=== PATIENT | female | born 2000 | race Caucasian/White ===

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

== ENCOUNTER 2018-04-05 17:22 | Inpatient (IN) | payer BC ==
[2018-04-05 17:39] LABS: BASO % 0.5 % (0.0-1.0); EOS # 0.1 10^3/uL (0.0-0.50); EOS % 0.6 % (0.0-3.0); HEMATOCRIT 39.5 % (36.0-47.0); IMMATURE GRANULOCYTE % 0.4 % (0-3.0); LYMPH # 1.2 10^3/uL (1.5-6.5); LYMPH % 15.5 % (24.0-44.0); MEAN CORPUSCULAR HEMOGLOBIN 30.4 pg (27.0-33.0); MEAN CORPUSCULAR HGB CONC 32.9 g/dl (32.0-36.5); MEAN CORPUSCULAR VOLUME 92.3 fl (80.0-96.0); MONO # 0.7 10^3/uL (0.0-0.8); MONO % 8.2 % (0.0-5.0); NEUTROPHILS # 5.9 10^3/uL (1.8-7.7); NEUTROPHILS % 74.8 % (36.0-66.0); PLATELET COUNT, AUTOMATED 318 10^3/uL (150-450); RED BLOOD COUNT 4.28 10^6/uL (4.00-5.40); RED CELL DISTRIBUTION WIDTH 13.3 % (11.5-14.5); WHITE BLOOD COUNT 7.9 10^3/uL (4.0-10.0)
[2018-04-05] MEDS: NS 1,000 ML IV ×3 (17:43→21:45)
[2018-04-05 17:55] LABS: CONTROL LINE HCG INT CTR LINE PRESENT; HCG, SERUM QUALITATIVE NEGATIVE (NEGATIVE)
[2018-04-05 18:09] LABS: ALBUMIN 3.8 GM/DL (3.2-5.2); ALBUMIN/GLOBULIN RATIO 1.06 (1.00-1.93); ALKALINE PHOSPHATASE 70 U/L (45-117); ALT/SGPT 19 U/L (12-78); ANION GAP 9 MEQ/L (8-16); AST/SGOT 9 U/L (7-37); BILIRUBIN,DIRECT 0.1 MG/DL (0.0-0.2); BILIRUBIN,TOTAL 0.5 MG/DL (0.2-1.0); BLOOD UREA NITROGEN 11 MG/DL (7-18); CALCIUM LEVEL 8.8 MG/DL (8.5-10.1); CARBON DIOXIDE LEVEL 24 MEQ/L (21-32); CHLORIDE LEVEL 109 MEQ/L (98-107); CPK CREATINE PHOSPHOKINASE 74 U/L (26-192); CREATININE FOR GFR 0.96 MG/DL (0.55-1.30); GLUCOSE, FASTING 128 MG/DL (70-100); POTASSIUM SERUM 4.3 MEQ/L (3.5-5.1); SALICYLATE LEVEL < 1.7 MG/DL (5.0-30.0); SODIUM LEVEL 142 MEQ/L (136-145); TOTAL PROTEIN 7.4 GM/DL (6.4-8.2)
[2018-04-05 18:16] LABS: ACETAMINOPHEN LEVEL < 2.0 UG/ML (10.0-30.0); ETHYL ALCOHOL (ETHANOL) < 0.003 % (0.000-0.010)
[2018-04-05 18:41] LABS: AMPHETAMINES LEVEL URINE NEGATIVE (NEGATIVE); BARBITURATES URINE NEGATIVE (NEGATIVE); BENZODIAZEPINES URINE NEGATIVE (NEGATIVE); CANNABINOIDS URINE NEGATIVE (NEGATIVE); COCAINE METABOLITE URINE NEGATIVE (NEGATIVE); METHADONE URINE NEGATIVE (NEGATIVE); OPIATES URINE NEGATIVE (NEGATIVE); PHENCYCLIDINE URINE NEGATIVE (NEGATIVE)
[2018-04-06] MEDS ORDERED: ACETAMINOPHEN TAB 650MG DOSE (2X325MG) PO (02:00)
[2018-04-06] MEDS ORDERED: MOM 30ML SUSPENSION UDC PO (02:00)
[2018-04-06] MEDS ORDERED: traZODone 50 MG TAB PO (02:00)
[2018-04-06] MEDS ORDERED: MAALOX 30 ML SUSP *UDC PO (02:00)
== END 2018-04-07 11:45 | disposition home or self-care (01) | DRG 754 ==
LOC: M ED 17:22 → M ED INP 04-06 01:47 → M PSY 04-06 02:45
DX: F43.21 Adjustment disorder with depressed mood (principal); T36.3X2A Poisoning by macrolides, intentional self-harm, initial encounter; T43.3X5A Adverse effect of phenothiazine antipsychotics and neuroleptics, initial encounter; Y92.411 Interstate highway as the place of occurrence of the external cause

== ENCOUNTER 2018-05-08 13:04 | Emergency (ER) | payer BC ==
[2018-05-08] MEDS: ONDANSETRON 4MG/2ML VIAL (J2405) IV (15:08)
[2018-05-08] MEDS: NS 1,000 ML IV (15:08)
[2018-05-08 15:19] LABS: HEMATOCRIT 40.4 % (36.0-47.0); HEMOGLOBIN 13.6 g/dl (12.0-15.5); MEAN CORPUSCULAR HEMOGLOBIN 29.5 pg (27.0-33.0); MEAN CORPUSCULAR HGB CONC 33.7 g/dl (32.0-36.5); MEAN CORPUSCULAR VOLUME 87.6 fl (80.0-96.0); PLATELET COUNT, AUTOMATED 203 10^3/uL (150-450); RED BLOOD COUNT 4.61 10^6/uL (4.00-5.40); WHITE BLOOD COUNT 9.8 10^3/uL (4.0-10.0)
[2018-05-08 15:25] LABS: KETONE, URINE AUTO RFX NEGATIVE (NEGATIVE); MUCUS, URINE RFX SMALL (NEGATIVE); NITRITE, URINE AUTO RFX NEGATIVE (NEGATIVE); RBC, URINE AUTO RFX 2 /HPF (0-3); SPECIFIC GRAVITY UR AUTO RFX 1.011 (1.002-1.035); SQUAM EPITHELIAL CELL UR AURFX 4 /HPF (0-6); WBC, URINE AUTO RFX 3 /HPF (0-3)
[2018-05-08 15:28] LABS: ADD MANUAL DIFFER YES; DIFF SLIDE NUMBER 276; POSITIVE DIFF POS FLAG; POSITIVE MORPH POS FLAG
[2018-05-08 15:35] LABS: CONTROL LINE MONO INT CTR LINE PRESENT; MONO SCRN POSITIVE (NEGATIVE)
[2018-05-08 15:42] LABS: ALBUMIN 4.1 GM/DL (3.2-5.2); ALBUMIN/GLOBULIN RATIO 1.03 (1.00-1.93); ALKALINE PHOSPHATASE 171 U/L (45-117); ALT/SGPT 107 U/L (12-78); ANION GAP 9 MEQ/L (8-16); AST/SGOT 100 U/L (7-37); BILIRUBIN,DIRECT 0.3 MG/DL (0.0-0.2); BILIRUBIN,TOTAL 0.8 MG/DL (0.2-1.0); BLOOD UREA NITROGEN 4 MG/DL (7-18); CALCIUM LEVEL 9.3 MG/DL (8.5-10.1); CARBON DIOXIDE LEVEL 26 MEQ/L (21-32); CHLORIDE LEVEL 106 MEQ/L (98-107); CREATININE FOR GFR 0.88 MG/DL (0.55-1.30); GLUCOSE, FASTING 87 MG/DL (70-100); LIPASE 56 U/L (73-393); POTASSIUM SERUM 3.6 MEQ/L (3.5-5.1); SODIUM LEVEL 141 MEQ/L (136-145); TOTAL PROTEIN 8.1 GM/DL (6.4-8.2)
[2018-05-08] MEDS ORDERED: ISOVUE-370 76% 100ML VIAL (Q9967) As Ordered (15:44)
[2018-05-08 15:48] LABS: LYMPHOCYTES 75 % (16-52); MONOCYTES 6 % (0-8); NEUTROPHILS 19 % (35-75)
[2018-05-08] MEDS: KETOROLAC 30 MG/ML VIAL (J1885) IV (15:48)
[2018-05-08 15:49] LABS: PLATELET ESTIMATE NORMAL (NORMAL)
[2018-05-08 16:03] LABS: LEUKOCYTE ESTERASE UR AUTO RFX TRACE (NEGATIVE)
== END 2018-05-08 17:09 | disposition home or self-care (01) ==
LOC: M ED 13:04
DX: B27.99 Infectious mononucleosis, unspecified with other complication (principal); R16.2 Hepatomegaly with splenomegaly, not elsewhere classified
CPT/HCPCS: J2405

== ENCOUNTER 2018-06-11 19:56 | Emergency (ER) | payer BC | END 2018-06-11 20:57 | disposition home or self-care (01) | LOC: M ED 19:56 | DX: Z60.9 Problem related to social environment, unspecified (principal); F41.9 Anxiety disorder, unspecified; F17.201 Nicotine dependence, unspecified, in remission | CPT/HCPCS: 99284 ==

== ENCOUNTER → 2018-10-06 | Outpatient (CLI) | payer BC ==
[~2018-10-06] MED LIST changes: +KEFL500C17 PO
[2018-10-06 16:07] LABS: CHLAMYDIA DNA AMPLIFICATION NEGATIVE (NEGATIVE); GC DNA AMPLIFICATION NEGATIVE (NEGATIVE)
[2018-10-07 16:24] LABS: HEPATITIS B SURFACE ANTIBODY NEGATIVE (POSITIVE); HEPATITIS B SURFACE ANTIGEN NEGATIVE (NEGATIVE); HIV 1&2 SCREEN CENTAUR NEGATIVE (NEGATIVE)
[2018-10-08 14:44] LABS: HEPATITIS B CORE ANTIBODY IGG Negative (Negative); HEPATITIS C QUANTITATION HCV Not Detected IU/mL (.); HSV IgM TYPES 1&2 <0.91 Ratio (0.00-0.90)
== END ==
LOC: M WUC 12:14
PROVIDERS: ATTEND Student in an Organized Health Care Education/Training Program
DX: Z20.2 Contact with and (suspected) exposure to infections with a predominantly sexual mode of transmission (principal)

== ENCOUNTER → 2018-10-13 | Outpatient (CLI) | payer BC | LOC: M WUC 12:17 | PROVIDERS: ATTEND Student in an Organized Health Care Education/Training Program | DX: Z78.9 Other specified health status (principal) ==

== ENCOUNTER → 2019-05-24 | Outpatient (REF) | payer BC | LOC: M LAB REF 11:24 | PROVIDERS: ATTEND Physician Assistant | DX: J20.9 Acute bronchitis, unspecified (principal) ==

== ENCOUNTER → 2019-09-25 | Outpatient (REF) | payer BC | LOC: M LAB REF 17:48 | PROVIDERS: ATTEND Physician Assistant | DX: J02.9 Acute pharyngitis, unspecified (principal) ==

== ENCOUNTER → 2019-10-18 | Outpatient (REF) | payer BC ==
[2019-10-19 12:22] LABS: CHLAMYDIA DNA AMPLIFICATION NEGATIVE (NEGATIVE); GC DNA AMPLIFICATION NEGATIVE (NEGATIVE)
== END ==
LOC: M SFHCPLAZ 09:52
PROVIDERS: ATTEND Obstetrics & Gynecology
DX: Z01.419 Encounter for gynecological examination (general) (routine) without abnormal findings (principal); Z11.9 Encounter for screening for infectious and parasitic diseases, unspecified
CPT/HCPCS: 87661; G0123

== ENCOUNTER → 2019-11-24 | Outpatient (REF) | payer BC | LOC: M SFHCPLAZ 09:27 | PROVIDERS: ATTEND Family Medicine | DX: E66.9 Obesity, unspecified (principal) ==

== ENCOUNTER → 2019-12-01 | Outpatient (CLI) | payer BC ==
[2019-12-01 20:04] LABS: CHOLESTEROL RISK RATIO 3.756 (<5)
== END ==
LOC: M WUC 11:14
PROVIDERS: ATTEND Student in an Organized Health Care Education/Training Program
DX: E66.9 Obesity, unspecified (principal)

== ENCOUNTER → 2020-03-30 | Outpatient (CLI) | payer BC | LOC: M LABSMTC 13:23 | PROVIDERS: ATTEND Family Medicine | DX: Z11.59 Encounter for screening for other viral diseases (principal) | CPT/HCPCS: C9803; U0003 ==

== ENCOUNTER → 2020-08-03 | Outpatient (CLI) | payer SELFPAY | LOC: M LABSMTC 12:55 | PROVIDERS: ATTEND Pediatrics | DX: Z20.828 Contact with and (suspected) exposure to other viral communicable diseases (principal) ==

== ENCOUNTER → 2020-08-08 | Outpatient (REF) | payer BC | LOC: M LAB REF 16:16 | PROVIDERS: ATTEND Physician Assistant | DX: J02.9 Acute pharyngitis, unspecified (principal) ==